=== PATIENT | female | born 1995 | race Caucasian/White ===

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

== ENCOUNTER 2017-04-21 15:30 | Outpatient (CLI) | payer OTHER, BC | END 2017-04-21 15:31 | disposition home or self-care (01) | LOC: LAB.WCP 15:30 | PROVIDERS: ATTEND Physician Assistant Medical | DX: L03.019 Cellulitis of unspecified finger (principal) | CPT/HCPCS: 87070; 87205 ==